=== PATIENT | female | born 1960 | race Caucasian/White ===

== ENCOUNTER → 2023-10-27 13:34 | Outpatient (REF) | payer OTHER, SELFPAY | LOC: HWRCS 13:34 | PROVIDERS: ATTENDING PHYSICIAN Family Medicine | DX: R06.09 Other forms of dyspnea (principal) | CPT/HCPCS: 93306 ==

== ENCOUNTER → 2023-11-21 11:54 | Outpatient (REF) | payer OTHER, SELFPAY | LOC: DHCBC/DCA 11:54 | PROVIDERS: ATTENDING PHYSICIAN Family Medicine | DX: R06.09 Other forms of dyspnea (principal); I10 Essential (primary) hypertension | CPT/HCPCS: 78452; 93017; A9500; J2785 ==

== ENCOUNTER → 2024-04-27 07:27 | Outpatient (REF) | payer OTHER, SELFPAY ==
[2024-04-27 09:50] LABS: % Basophils 0.8 % (0-2); % Eosinophils 1.6 % (0-6); % Immature Granulocytes 0.6 % (0-0.5); % Lymphocytes 20.9 % (20.5-51.1); % Monocytes 5.9 % (1.7-9.3); % Neutrophils 70.2 % (42.2-75.2); Absolute Basophils 0.1 10^3/uL (0-0.2); Absolute Eosinophils 0.2 10^3/uL (0-0.7); Absolute Immature Granulocytes 0.1 10^3/uL (0-0.05); Absolute Lymphocytes 2.1 10^3/uL (1.2-3.4); Absolute Monocytes 0.6 10^3/uL (0.1-0.6); Absolute Neutrophils 7.2 10^3/uL (1.4-6.5); Hematocrit 42.3 % (37.0-47.0); Hemoglobin 14.1 g/dL (12.0-16.0); Mean Corp Hgb Conc. 33.3 g/dL (33.0-37.0); Mean Corpuscular Hgb 29.1 pg (27.0-31.0); Mean Corpuscular Volume 87.4 fL (81.0-99.0); Mean Platelet Volume 10.2 fL (7.4-10.4); Nucleated Red Blood Cells % 0 %; Platelet Count 254 10^3/uL (130-400); Red Blood Cell Count 4.84 10^6/uL (4.20-5.40); White Blood Cell Count 10.3 10^3/uL (4.8-10.8)
[2024-04-27 10:31] LABS: ALT (SGPT) 38 U/L (0-35); AST (SGOT) 31 U/L (14-36); Albumin 4.5 g/dl (3.5-5.0); Alkaline Phosphatase 98 U/L (38-126); Blood Urea Nitrogen 15 mg/dl (7-17); Calcium 9.7 mg/dl (8.4-10.2); Carbon Dioxide 21 mmol/L (22-30); Chloride 102 mmol/L (98-107); Glucose 113 mg/dl (70-99); Potassium 4.2 mmol/L (3.5-5.1); Sodium 142 mmol/L (135-145); Total Bilirubin 0.6 mg/dl (0.2-1.3); Total Protein 7.1 g/dl (6.3-8.2); eGFR > 60.00
[2024-04-27 11:03] LABS: Glycohemoglobin (HgbA1c) 5.9 % (4.0-5.6)
[2024-04-27 11:26] LABS: Vitamin D, 25-OH*** < 12.8 ng/mL (30-80)
[2024-04-29 14:38] LABS: 1,5 Anhydroglucitol(Glycomark) 19.5 ug/mL (6.8-29.3)
== END ==
LOC: REG 07:27
PROVIDERS: ATTENDING PHYSICIAN Orthopaedic Surgery; FAMILY PHYSICIAN Family Medicine
DX: Z01.818 Encounter for other preprocedural examination (principal); R89.9 Unspecified abnormal finding in specimens from other organs, systems and tissues; I10 Essential (primary) hypertension; R73.9 Hyperglycemia, unspecified
CPT/HCPCS: 36415; 80053; 82306; 83036; 84378; 85025

== ENCOUNTER 2024-05-29 06:11 | Day surgery (SDC) | payer OTHER, SELFPAY ==
--- NOTE | 2024-05-20 14:21 | VNURNOTE ---
Patient is scheduled for an elective R TKR on 05/29/24- with Dr Rowley. She is a same day patient. Spoke with patient prior to surgery. Introduced role of [facility] liaison. Patient reports that she lives with her son in a MULTI story home. There are 2
[address]. She has a first floor set up with a bathroom on the first floor she can use.
She currently functions independently. She has a cane and rolling walker.
Shee had [facility] services after prior TKR which was done at .
PCP is Dr Osborne .
Discussed orthopedic program and post surgical plans.
Reviewed that she will have [facility] services initially and will then start outpatient PT.
Patient selects [facility] for home care needs and will go to [facility] for outpatient PT on 05/31.
Patient is in agreement with plan and states that son and friend will be home with her.
Reminded patient to bring RW with her day of surgery.
[facility] referral placed in [facility].
[facility] out[facility] at [facility]
[2024-05-29] VITALS (12 sets, daily range): BP systolic 91–151; BP diastolic 41–76; PULSE 68; O2SAT 95
[2024-05-29] MEDS: NORMOSOL-R/PLASMALYTE-A 1000 IV (07:20)
[2024-05-29] MEDS: TYLENOL 650 MG PO (07:40)
[2024-05-29] MEDS: CELEBREX 200 MG PO (07:40)
[2024-05-29] MEDS: BENADRYL 12.5 MG IV ×2 (09:39→11:08)
[2024-05-29] MEDS: ANCEF 5 IV (12:07)
== END 2024-05-29 13:00 | disposition home health service (06) ==
LOC: SDS 06:11
PROVIDERS: ATTENDING PHYSICIAN Orthopaedic Surgery
DX: M17.11 Unilateral primary osteoarthritis, right knee (principal)
CPT/HCPCS: 27447; 73560; 87070; 97116; 97162; C1713; C1776

== ENCOUNTER → 2024-11-12 11:08 | Outpatient (REF) | payer OTHER, SELFPAY | LOC: RAD 11:08 | PROVIDERS: ATTENDING PHYSICIAN Family Medicine | DX: R22.42 Localized swelling, mass and lump, left lower limb (principal) | CPT/HCPCS: 93971 ==

== ENCOUNTER → 2024-11-25 08:57 | Outpatient (REF) | payer OTHER, SELFPAY | LOC: HWRAD 08:57 | PROVIDERS: ATTENDING PHYSICIAN Internal Medicine Pulmonary Disease; FAMILY PHYSICIAN Family Medicine | DX: Z87.891 Personal history of nicotine dependence (principal) | CPT/HCPCS: 71271 ==

== ENCOUNTER → 2024-12-27 17:02 | Outpatient (REF) | payer OTHER, SELFPAY | LOC: CLAB 17:02 | PROVIDERS: ATTENDING PHYSICIAN Otolaryngology | DX: K14.8 Other diseases of tongue (principal) | CPT/HCPCS: 88305 ==

== ENCOUNTER → 2025-01-21 06:42 | Outpatient (REF) | payer OTHER, SELFPAY ==
[2025-01-21 07:40] LABS: % Basophils 0.6 % (0-2); % Eosinophils 3.5 % (0-6); % Immature Granulocytes 0.6 % (0-0.5); % Lymphocytes 17.9 % (20.5-51.1); % Monocytes 6.5 % (1.7-9.3); % Neutrophils 70.9 % (42.2-75.2); Absolute Basophils 0.1 10^3/uL (0-0.2); Absolute Eosinophils 0.4 10^3/uL (0-0.7); Absolute Immature Granulocytes 0.1 10^3/uL (0-0.05); Absolute Lymphocytes 2.1 10^3/uL (1.2-3.4); Absolute Monocytes 0.8 10^3/uL (0.1-0.6); Absolute Neutrophils 8.2 10^3/uL (1.4-6.5); Hematocrit 31.1 % (37.0-47.0); Hemoglobin 9.1 g/dL (12.0-16.0); Mean Corp Hgb Conc. 29.3 g/dL (33.0-37.0); Mean Corpuscular Hgb 22.1 pg (27.0-31.0); Mean Corpuscular Volume 75.7 fL (81.0-99.0); Mean Platelet Volume 8.7 fL (7.4-10.4); Nucleated Red Blood Cells % 0 %; Platelet Count 412 10^3/uL (130-400); Red Blood Cell Count 4.11 10^6/uL (4.20-5.40); White Blood Cell Count 11.5 10^3/uL (4.8-10.8)
== END ==
LOC: REG 06:42
PROVIDERS: ATTENDING PHYSICIAN Internal Medicine Pulmonary Disease; FAMILY PHYSICIAN Family Medicine
DX: J44.9 Chronic obstructive pulmonary disease, unspecified (principal)
CPT/HCPCS: 36415; 71046; 85025; 93005

== ENCOUNTER → 2025-02-04 06:36 | Outpatient (REF) | payer OTHER, SELFPAY ==
[2025-02-04 07:19] LABS: % Basophils 0.8 % (0-2); % Eosinophils 2.1 % (0-6); % Immature Granulocytes 0.4 % (0-0.5); % Lymphocytes 15.7 % (20.5-51.1); % Monocytes 6.2 % (1.7-9.3); % Neutrophils 74.8 % (42.2-75.2); Absolute Basophils 0.1 10^3/uL (0-0.2); Absolute Eosinophils 0.3 10^3/uL (0-0.7); Absolute Immature Granulocytes 0.1 10^3/uL (0-0.05); Absolute Monocytes 0.8 10^3/uL (0.1-0.6); Absolute Neutrophils 9.4 10^3/uL (1.4-6.5); Hematocrit 30.9 % (37.0-47.0); Hemoglobin 9.1 g/dL (12.0-16.0); Mean Corp Hgb Conc. 29.4 g/dL (33.0-37.0); Mean Corpuscular Hgb 21.7 pg (27.0-31.0); Mean Corpuscular Volume 73.7 fL (81.0-99.0); Mean Platelet Volume 8.2 fL (7.4-10.4); Nucleated Red Blood Cells % 0.2 %; Platelet Count 444 10^3/uL (130-400); Red Blood Cell Count 4.19 10^6/uL (4.20-5.40); White Blood Cell Count 12.6 10^3/uL (4.8-10.8)
[2025-02-04 07:49] LABS: HDL Cholesterol 81 mg/dl; Iron 31 ug/dl (37-170); LDL Cholesterol, Calculated 33 mg/dl; Total Cholesterol 140 mg/dl (50-199); Triglyceride 133 mg/dl (10-149); Very Low Density Lipoprotein 26 mg/dl (0-30)
[2025-02-04 08:00] LABS: Percent Saturation 6 % (20-50); Total Iron Binding Capacity 492 ug/dl (265-497)
[2025-02-04 08:15] LABS: Ferritin 6.6 ng/ml (11.1-264.0)
== END ==
LOC: REG 06:36
PROVIDERS: ATTENDING PHYSICIAN Family Medicine
DX: R53.83 Other fatigue (principal); R79.89 Other specified abnormal findings of blood chemistry; E78.00 Pure hypercholesterolemia, unspecified
CPT/HCPCS: 36415; 80061; 82728; 83540; 83550; 85025

== ENCOUNTER 2025-02-27 10:10 | Emergency (ER) | payer OTHER, SELFPAY ==
[2025-02-27 10:10] VITALS: BMI 43.1
[2025-02-27 10:12] VITALS: BP 174/85
--- NOTE | 2025-02-27 10:23 | ED.GENMED ---
History of Present Illness
General
Chief Complaint: Swelling
Source: patient
Exam Limitations: none
Time Seen by Provider: 02/27/25 10:20
History of Present Illness
History of Present Illness:
See MDM
Past History
Past History
ED Past Medical History: HTN and Psychiatric (depression, anxiety)
ED Past Surgical History: Gynecological (2 x elective abortions) and Tonsilectomy
Social History
Tobacco: Smoker (1/2 ppd x 30 years)
Alcohol: None
Drug: None
Living: with family
Employment: Employed
Family History
Family History: Other (mother CVA, Father with parkinson's disease)
Phy Exam
Physical Exam
Physical Exam:
See MDM
Scores
Heart Failure Risk
Heart Failure Risk Score: Not Applicable
Course
Orders/Labs/Results
Orders:
Orders
02/27/25 10:22
US Periph Venous UPPER Ext LT Urgent
Comment:
Reason For Exam: left forearm and axilla pain
Vital Signs
Initial and Last Documented VS:
Initial Vital Signs
Temp Pulse Resp BP Pulse Ox
98.3 F 109 22 174/85 100
02/27/25 10:12 02/27/25 10:12 02/27/25 10:12 02/27/25 10:12 02/27/25 10:12
Last Documented Vital Signs
Temp Pulse Resp BP Pulse Ox
98 F 84 16 145/81 99
02/27/25 12:00 02/27/25 12:00 02/27/25 12:00 02/27/25 12:00 02/27/25 12:00
MDM/Problems Addressed
Differential Diagnosis Includes:
HPI and MDM Narrative:
64-year-old female presenting with left arm and axilla pain and swelling. She noticed this earlier today. She does acknowledge that her left hand was swollen and erythematous but that has since resolved. She states this stems from an iron
infusion yesterday where the IV site was in the wrist. She denies numbness or tingling.
Given the mild edema to left forearm and the pain in the axilla, will obtain ultrasound rule out DVT
Physical exam
General: Well appearing and non-toxic
HEENT: protecting airway
Neck: appears supple
CV: No evidence of cyanosis
Resp: No accessory muscle use
Abd: Non-distended
Extremities: Mild edema to left forearm without skin changes. Distal pulses intact
Neuro: alert
Psych: Normal affect
Skin: Intact
Problems Addressed including Acute and Chronic Conditions affecting care:
1. Left forearm swelling and pain
Acuity: acute
Prognosis: stable
Details: Will obtain ultrasound rule out DVT
Updates
Ultrasound negative for DVT. Discussed warm compresses and NSAIDs
Differential Diagnosis (but not limited to): DVT, superficial thrombophlebitis
Testing considered: X-ray but no bony tenderness noted
Drug therapy (if applicable): OTC meds, please see d/c instruction regarding Rx drugs
Amount and/or Complexity of Data Reviewed
Clinical info obtained from: Patient
External data reviewed: N/A
Labs I independently reviewed (but not limited to): N/A
Radiology: Ultrasound report reviewed
Pulse Ox: not hypoxic
EKG independently reviewed: N/A
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
Critical Care: N/A
Risk of Complication:
Social Determinants of health: Good social support
Discussed with other providers: N/A
Escalation of Care includes Admit/Obs: After being observed in the Emergency Department, pt stable for discharge.
Occasional wrong word or 'sound a like' substitutions may have occurred due to the inherent limitations of voice recognition software. Read the chart carefully and recognize, using context, where substitutions have occurred.
*Pulse Oximetry
SaO2: 100
Oxygen Mode of Delivery: Room air
Patient hypoxic: no
*Critical Care Note
Total Time (30-74mins, 75-104mins- exclusive of procedures): Not Applicable
ED Attending Note
-
Portions of this chart may have been created with voice recognition software.� Occasional wrong word or��sound alike� substitutions may have occurred due to the inherent limitations of voice recognition software.
Discharge Plan
Departure
Patient Disposition: Home (Routine Discharge)
Date of Disposition: 02/27/25
Time of Disposition: 12:43
Patient with high blood pressure during this ER visit?: No
Discharge Problem:
Arm pain, left
Prescriptions:
No Action
famotidine [Pepcid AC] 20 MG tablet
20 mg PO QPM
lithium carbonate 300 MG tablet
300 mg PO HS
metoprolol succinate 50 mg Tablet Extended Release 24 Hr
50 mg PO HS
citalopram [Celexa] 10 mg Tablet
10 mg PO HS
methylphenidate HCl [Ritalin] 5 mg Tablet
5 mg PO DAILY
methylphenidate HCl [Ritalin] 5 mg Tablet
5 mg PO DAILY PRN (Reason: ADHD, doubles up if needed)
clonazepam 0.5 mg Tablet
0.75 mg PO HS
citalopram [Celexa] 20 mg Tablet
20 mg PO DAILY
mupirocin 2 % Ointment
1 applic TOPICAL BID
aripiprazole [Abilify] 30 mg Tablet
30 mg PO HS
rosuvastatin [Crestor] 10 mg Tablet
10 mg PO DAILY
omeprazole magnesium [Prilosec OTC] 20 mg Tablet,Delayed Release (Dr/Ec)
20 mg PO DAILY
atomoxetine [Strattera] 80 mg Capsule
80 mg PO DAILY
coQ10 (ubiquinol) 100 mg Capsule
100 mg PO BID
Spiriva Respimat 1.25 mcg/actuation Mist
2 puff INHALATION DAILY
aspirin 325 mg tablet
325 mg PO DAILY Qty: 30 0RF
Rx Instructions:
Take daily x4 weeks for blood clot prevention; then resume Aspirin 81 mg daily.
docusate sodium [Colace] 100 mg capsule
100 mg PO BID Qty: 30 0RF
sennosides [senna] 8.6 mg tablet
17.2 mg PO BID Qty: 30 0RF
acetaminophen [Tylenol Extra Strength] 500 mg tablet
1,000 mg PO Q6H Qty: 60 0RF
Rx Instructions:
DO NOT exceed >4000 mg daily.
meloxicam 15 mg tablet
15 mg PO DAILY Qty: 30 0RF
Rx Instructions:
Take with food.
DO NOT take within 2 hours of Aspirin.
losartan 50 MG tablet
50 mg PO HS Qty: 0 0RF
Rx Instructions:
HOLD IF systolic blood pressure <130 while Oxycodone.
sumatriptan succinate [Imitrex] 100 mg Tablet
100 mg PO DAILYPRN PRN (Reason: migraines) Qty: 0 0RF
ondansetron HCl 4 mg Tablet
4 mg PO Q6H PRN (Reason: nausea and vomiting) Qty: 30 0RF
Rx Instructions:
Prescribed by surgeon's office pre-op.
clonazepam 0.5 MG tablet
0.25 mg PO DAILYPRN PRN (Reason: anxiety) Qty: 0 0RF
cefadroxil 500 mg Capsule
500 mg PO Q12H Qty: 14 0RF
Rx Instructions:
Start night of discharge and continue every 12 hours until finished.
dexamethasone 4 mg Tablet
4 mg PO Q12H Qty: 0 0RF
Rx Instructions:
Start night of discharge and continue every 12 hours until finished.
Take with food.
hydrochlorothiazide 25 MG tablet
25 mg PO DAILY Qty: 0 0RF
Rx Instructions:
HOLD if systolic blood pressure <130 while on Oxycodone.
oxycodone 5 mg Tablet
5 - 10 mg PO Q6H PRN (Reason: moderate-severe pain) Qty: 30 0RF
Rx Instructions:
1 tab for moderate pain, 2 if severe.
Dx total joint.
Referrals:
Andres Osborne DO [Family Provider, Family Practice]
Activity Restrictions/Additional Instructions:
As we discussed, there is no evidence of a blood clot in your arm. Please talk to the infusion center tomorrow before your next iron infusion. Please use warm compress on the area for the next couple days. Please return for worsening symptoms.
Interventions
Interventions:
*Risk Screen - Suicide Last Done: 02/27/25 10:12
*General Assessment Last Done: 02/27/25 10:26
*Neglect/Abuse Screening Last Done: 02/27/25 10:26
*ED- Fall Risk Assessment Last Done: 02/27/25 10:26
ED- Cardiac Assessment Last Done: 02/27/25 10:26
ED- Pulmonary Assessment Last Done: 02/27/25 10:26
ED-Skin Assessment Last Done: 02/27/25 10:26
Discharge Date and Time
Print Language: [id number]
[2025-02-27 12:00] VITALS: BP 145/81
== END 2025-02-27 12:48 | disposition home or self-care (01) ==
LOC: EMR 10:10
PROVIDERS: EMERGENCY PHYSICIAN Student in an Organized Health Care Education/Training Program; FAMILY PHYSICIAN Family Medicine
DX: M79.602 Pain in left arm (principal); I10 Essential (primary) hypertension; F17.210 Nicotine dependence, cigarettes, uncomplicated
CPT/HCPCS: 99284; 93971

== ENCOUNTER → 2025-03-13 14:11 | Outpatient (REF) | payer OTHER, SELFPAY ==
[2025-03-13 14:27] LABS: Hematocrit 37.0 % (37.0-47.0); Hemoglobin 10.8 g/dL (12.0-16.0); Mean Corp Hgb Conc. 29.2 g/dL (33.0-37.0); Mean Corpuscular Volume 77.7 fL (81.0-99.0); Platelet Count 429 10^3/uL (130-400); Red Cell Dist. Width 23.9 % (11.5-14.5)
== END ==
LOC: OIDL 14:11
PROVIDERS: ATTENDING PHYSICIAN Registered Nurse
DX: D50.8 Other iron deficiency anemias (principal)
CPT/HCPCS: 85025

== ENCOUNTER → 2025-03-31 15:39 | Outpatient (REF) | payer OTHER, SELFPAY ==
[2025-03-31 13:59] LABS: Hematocrit 37.6 % (37.0-47.0); Hemoglobin 11.4 g/dL (12.0-16.0); Mean Corp Hgb Conc. 30.3 g/dL (33.0-37.0); Mean Corpuscular Volume 80.2 fL (81.0-99.0); Platelet Count 346 10^3/uL (130-400); Red Cell Dist. Width 23.7 % (11.5-14.5)
== END ==
LOC: OIDL 15:39
PROVIDERS: ATTENDING PHYSICIAN Registered Nurse
DX: D50.8 Other iron deficiency anemias (principal)
CPT/HCPCS: 85025

== ENCOUNTER → 2025-04-03 09:40 | Day surgery (SDC) | payer OTHER, SELFPAY ==
[2025-04-03 13:30] VITALS: BMI 41.2
[2025-04-03 13:31] VITALS: BMI 41.2
[2025-04-03 13:32] VITALS: BP 166/93
[2025-04-03 16:40] VITALS: BP 135/61
[2025-04-03 16:45] VITALS: BP 141/79
== END | disposition home or self-care (01) ==
LOC: GI 09:40
PROVIDERS: ATTENDING PHYSICIAN Internal Medicine Gastroenterology
DX: D50.9 Iron deficiency anemia, unspecified (principal); K44.9 Diaphragmatic hernia without obstruction or gangrene; K25.9 Gastric ulcer, unspecified as acute or chronic, without hemorrhage or perforation; K31.89 Other diseases of stomach and duodenum; K62.1 Rectal polyp; K64.0 First degree hemorrhoids; K57.30 Diverticulosis of large intestine without perforation or abscess without bleeding
CPT/HCPCS: 45380; 43239; 88305; 88342

== ENCOUNTER → 2025-04-15 09:50 | Outpatient (REF) | payer OTHER, SELFPAY | LOC: WDC 09:50 | PROVIDERS: ATTENDING PHYSICIAN Family Medicine | DX: N63.32 Unspecified lump in axillary tail of the left breast (principal) | CPT/HCPCS: 76642; 77063; 77067 ==

== ENCOUNTER → 2025-04-30 07:59 | Outpatient (REF) | payer OTHER, SELFPAY ==
[2025-04-30 09:15] LABS: Hematocrit 43.1 % (37.0-47.0); Hemoglobin 13.3 g/dL (12.0-16.0); Mean Corp Hgb Conc. 30.9 g/dL (33.0-37.0); Mean Corpuscular Volume 82.6 fL (81.0-99.0); Nucleated Red Blood Cells % 0 %; Platelet Count 273 10^3/uL (130-400); Red Cell Dist. Width 21.2 % (11.5-14.5)
[2025-04-30 10:21] LABS: Iron 55 ug/dl (37-170)
[2025-04-30 10:32] LABS: Total Iron Binding Capacity 362 ug/dl (265-497)
[2025-04-30 10:34] LABS: Vitamin D, 25-OH*** 31.8 ng/mL (30-80)
[2025-04-30 10:52] LABS: Ferritin 57.2 ng/ml (11.1-264.0)
== END ==
LOC: REG 07:59
PROVIDERS: ATTENDING PHYSICIAN Registered Nurse; FAMILY PHYSICIAN Family Medicine
DX: D50.8 Other iron deficiency anemias (principal)
CPT/HCPCS: 36415; 82306; 82728; 83540; 83550; 85025

== ENCOUNTER 2025-07-24 06:13 | Day surgery (SDC) | payer OTHER, SELFPAY ==
[2025-07-24 08:29] VITALS: BMI 41.2
[2025-07-24 08:30] VITALS: BMI 41.2
[2025-07-24 08:31] VITALS: BP 127/68
[2025-07-24 10:45] VITALS: BP 128/57
[2025-07-24 11:00] VITALS: BP 128/74
[2025-07-24 11:15] VITALS: BP 121/63
== END 2025-07-24 11:37 | disposition home or self-care (01) ==
LOC: GI 06:13
PROVIDERS: ATTENDING PHYSICIAN Internal Medicine Gastroenterology
DX: K64.0 First degree hemorrhoids (principal); K63.5 Polyp of colon; D12.1 Benign neoplasm of appendix
CPT/HCPCS: 45390; 88305

== ENCOUNTER 2025-08-19 06:03 | Day surgery (SDC) | payer OTHER, SELFPAY ==
[2025-08-13 07:10] VITALS: BMI 44.4
[2025-08-13 07:44] LABS: INR 1.02; PT 13.2 Sec (11.4-14.6)
[2025-08-13 07:45] LABS: APTT 28.3 Sec (23.4-35.0)
[2025-08-13 07:53] LABS: Hematocrit 41.3 % (37.0-47.0); Hemoglobin 13.4 g/dL (12.0-16.0); Mean Corp Hgb Conc. 32.4 g/dL (33.0-37.0); Mean Corpuscular Volume 88.8 fL (81.0-99.0); Platelet Count 274 10^3/uL (130-400); Red Cell Dist. Width 14.1 % (11.5-14.5)
[2025-08-13 08:00] LABS: ALT (SGPT) 18 U/L (0-35); AST (SGOT) 20 U/L (14-36); Albumin 4.4 g/dl (3.5-5.0); Alkaline Phosphatase 97 U/L (38-126); Blood Urea Nitrogen 15 mg/dl (7-17); Calcium 9.3 mg/dl (8.4-10.2); Carbon Dioxide 26 mmol/L (22-30); Chloride 100 mmol/L (98-107); Estimated Creatinine Clearance 77 ml/min; Glucose 126 mg/dl (70-99); Potassium 3.9 mmol/L (3.5-5.1); Sodium 139 mmol/L (135-145); Total Protein 7.1 g/dl (6.3-8.2); eGFR > 60.00
[2025-08-13 08:14] LABS: Total Iron Binding Capacity 401 ug/dl (265-497)
[2025-08-13 08:38] LABS: Ferritin 30.2 ng/ml (11.1-264.0)
[2025-08-13 08:51] LABS: Glycohemoglobin (HgbA1c) 5.9 % (4.0-5.9)
[2025-08-19] VITALS (9 sets, daily range): BP systolic 133–151; BP diastolic 47–86; BMI 44.4
[2025-08-19] MEDS: NEURONTIN 600 MG PO (07:18)
[2025-08-19] MEDS: NORMOSOL-R/PLASMALYTE-A 1000 IV (07:19)
[2025-08-19] MEDS: TYLENOL 1000 MG PO (07:19)
[2025-08-19] MEDS: MOBIC 15 MG PO (07:19)
[2025-08-19] MEDS: HEPARIN 5000 UNITS SC (07:19)
[2025-08-19] MEDS: DILAUDID 0.25 MG IV (09:55)
[2025-08-19] MEDS: ZOFRAN 4 MG IV (10:06)
== END 2025-08-19 11:40 | disposition home or self-care (01) ==
LOC: SDS 06:03
PROVIDERS: ATTENDING PHYSICIAN Surgery; FAMILY PHYSICIAN Family Medicine; OTHER PHYSICIAN Internal Medicine Cardiovascular Disease
DX: K42.9 Umbilical hernia without obstruction or gangrene (principal); D12.1 Benign neoplasm of appendix
CPT/HCPCS: 49593; 71046; 80053; 82728; 83036; 83550; 85027; 85610; 85730; 86850; 86900; 86901; 88304; 93005; J1335